=== PATIENT | female | born 1960 | race Caucasian/White ===

== ENCOUNTER 2016-11-08 16:57 | Emergency (ER) | payer OTHER ==
[~2016-11-08] VITALS: Ht 167.6 cm; Wt 88.2 kg
[~2016-11-08 16:57] MED LIST: CYCL1TAB29 PO; HYDR-3516 PO; LEVO25TA4 PO; LISI10TA3 PO; LOVA20TA PO; MOBI15TA PO
[2016-11-08 17:03] VITALS: BP 180/107; PULSE 105; RESP 16; TEMP 98.3; O2SAT 98
--- NOTE | 2016-11-08 17:27 | PD ---
HPI Chief Complaint: Hypertension Time Seen by Provider: 17:09 Travel History International Travel<30 days: No Contact w/Intl Traveler<30days: No Traveled to known affect area: No History of Present Illness HPI 56-year-old female complains of headache, chest pain, shortness of breath. Patient has history hypertension. Patient states that she started having elevated blood pressure this morning. Patient complained of facial flushing and tachycardic since this morning also. Patient states that she started having substernal chest pressure and shortness of breath since this morning. Patient denies any chest pain radiation. Patient denies any nausea or diaphoresis. Patient denies any fever chills coughing congestion. Patient was seen in urgent care center and referred to ED for evaluation. Patient states that the headache is aching headache diffuse over the head. Patient denies any visual change. Patient denies any photophobia. Patient denies any neck pain. Patient denies any abdominal pain. Patient denies any nausea vomiting. Patient denies any focal weakness or numbness of the extremity. Patient has history of hypertension. Patient denies history diabetes or dyslipidemia. Patient has history hypothyroidism. Patient is a nonsmoker. Patient denies any history of CAD. PFSH Past Medical History Cancer: No Cardiovascular Problems: Yes (htn on meds) High Cholesterol: Yes Diabetes: No Diminished Hearing: No Endocrine: Yes Genitourinary: No Hepatitis: No Hiatal Hernia: No Hypertension: Yes Immune Disorder: No Medical other: Yes Musculoskeletal: Yes (ARTHRITIS ) Neurologic: No Psychiatric: No Reproductive: No Respiratory: No Immunizations Current: Yes Thyroid Disease: Yes ?: Not Menopausal: Yes Past Surgical History AICD: No Body Medical Devices: NONE Section: Yes (x3) Gynecologic Surgery: Yes (C SECTION X3) Joint Replacement: No Pacemaker: No Other Surgery: Yes Social History Alcohol Use: Yes (beer, wine socially) Tobacco Use: No (NEVER) Substance Use: No Allergies-Medications (Allergen,Severity, Reaction): Coded Allergies: Simvastatin (Unverified Allergy, Severe, 11/08/16) Reported Meds & Prescriptions Reported Meds & Active Scripts Active Hydrocodone-Acetaminophen 5-325 mg Tab 1 Tab PO Q4H PRN Reported Lisinopril 10 Mg Tab 10 Mg PO DAILY Lovastatin 20 Mg Tab 20 Mg PO HS Review of Systems General / Constitutional: No: Fever Eyes: No: Visual changes HENT: Positive: Headaches Cardiovascular: Positive: Chest Pain or Discomfort Respiratory: Positive: Shortness of Breath Gastrointestinal: No: Abdominal Pain Genitourinary: No: Dysuria Musculoskeletal: No: Pain Skin: No Rash Neurologic: No: Weakness Psychiatric: No: Depression Endocrine: No: Polydipsia Hematologic/Lymphatic: No: Easy Bruising Physical Exam Narrative GENERAL: Well-nourished, well-developed patient. SKIN: Focused skin assessment warm/dry. HEAD: Normocephalic. EYES: No scleral icterus. No injection or drainage. Pupils 3 mm equal reactive. Fundi benign. NECK: Supple, trachea midline. No JVD or lymphadenopathy. No meningismus CARDIOVASCULAR: Mild tachycardia rate and rhythm without murmurs, gallops, or rubs. RESPIRATORY: Breath sounds equal bilaterally. No accessory muscle use. GASTROINTESTINAL: Abdomen soft, non-tender, nondistended. MUSCULOSKELETAL: No cyanosis, or edema. BACK: Nontender without obvious deformity. No CVA tenderness. Neurologic exam: Patient's awake and alert oriented 3. No obvious focal neurological deficit. Data Data Last Documented VS Vital Signs Date Time Temp Pulse Resp B/P Pulse Ox O2 Delivery O2 Flow Rate FiO2 11/08/16 18:27 93 20 152/85 98 11/08/16 17:03 98.3 Orders Electrocardiogram (11/08/16 17:18) Complete Blood Count With Diff (11/08/16 17:18) Comprehensive Metabolic Panel (11/08/16 17:18) Creatine Kinase (Cpk) (11/08/16 17:18) Troponin I (11/08/16 17:18) Prothrombin Time / Inr (Pt) (11/08/16 17:18) Act Partial Throm Time (Ptt) (11/08/16 17:18) Urinalysis - C+S If Indicated (11/08/16 17:18) D-Dimer (11/08/16 17:18) Thyroid Stimulating Hormone (11/08/16 17:18) Chest, Single Ap (11/08/16 17:18) Ct Brain W/O Iv Contrast(Rout) (11/08/16 17:18) Iv Access Insert/Monitor (11/08/16 17:18) Ecg Monitoring (11/08/16 17:18) Oximetry (11/08/16 17:18) Ct Pulmonary Angiogram (11/08/16 17:18) Labetalol Inj (Trandate Inj) (11/08/16 17:30) CKMB (11/08/16 17:25) CKMB% (11/08/16 17:25) Urine Culture (11/08/16 17:25) Iohexol 350 Inj (Omnipaque 350 Inj) (11/08/16 18:25) Labs Laboratory Tests Test 11/08/16 17:25 White Blood Count 8.5 TH/MM3 Red Blood Count 4.55 MIL/MM3 Hemoglobin 13.5 GM/DL Hematocrit 39.9 % Mean Corpuscular Volume 87.6 FL Mean Corpuscular Hemoglobin 29.6 PG Mean Corpuscular Hemoglobin 33.8 % Concent Red Cell Distribution Width 13.4 % Platelet Count 407 TH/MM3 Mean Platelet Volume 6.4 FL Neutrophils (%) (Auto) 64.7 % Lymphocytes (%) (Auto) 28.0 % Monocytes (%) (Auto) 5.1 % Eosinophils (%) (Auto) 0.9 % Basophils (%) (Auto) 1.3 % Neutrophils # (Auto) 5.5 TH/MM3 Lymphocytes # (Auto) 2.4 TH/MM3 Monocytes # (Auto) 0.4 TH/MM3 Eosinophils # (Auto) 0.1 TH/MM3 Basophils # (Auto) 0.1 TH/MM3 CBC Comment DIFF FINAL Differential Comment Prothrombin Time 10.7 SEC Prothromb Time International 1.0 RATIO Ratio Activated Partial 28.3 SEC Thromboplast Time D-Dimer Quantitative (PE/DVT) 0.43 MG/L FEU Urine Color YELLOW Urine Turbidity CLEAR Urine pH 7.0 Urine Specific [place] 1.007 Urine Protein NEG mg/dL Urine Glucose (UA) NEG mg/dL Urine Ketones NEG mg/dL Urine Occult Blood MOD Urine Nitrite NEG Urine Bilirubin NEG Urine Leukocyte Esterase MOD Urine RBC 4-9 /hpf Urine WBC 9-14 /hpf Urine WBC Clumps FEW Urine Squamous Epithelial 0-5 /hpf Cells Urine Bacteria FEW /hpf Urine Mucus FEW /lpf Microscopic Urinalysis Comment CULTURE INDICATED Sodium Level 141 MEQ/L Potassium Level 3.5 MEQ/L Chloride Level 105 MEQ/L Carbon Dioxide Level 26.3 MEQ/L Anion Gap 10 MEQ/L Blood Urea Nitrogen 13 MG/DL Creatinine 0.74 MG/DL Estimat Glomerular Filtration 81 ML/MIN Rate Random Glucose 98 MG/DL Calcium Level 8.7 MG/DL Total Bilirubin 0.3 MG/DL Aspartate Amino Transf 32 U/L (AST/SGOT) Alanine Aminotransferase 30 U/L (ALT/SGPT) Alkaline Phosphatase 98 U/L Total Creatine Kinase 427 U/L Creatine Kinase MB 5.6 NG/ML Creatine Kinase MB % 1.3 % Troponin I LESS THAN 0.02 NG/ML Total Protein 8.5 GM/DL Albumin 4.5 GM/DL Thyroid Stimulating Hormone 2.890 uIU/ML [address] [place] [address] Medical Decision Making Medical Screen Exam Complete: Yes Emergency Medical Condition: Yes Interpretation(s) 1800 p.m. Last Impressions Chest X-Ray 11/08/16 7818 Signed Impressions: Service Date/Time: October 17:31 - CONCLUSION: No acute disease. Terence Nielson MD 1801 p.m. CBC within normal limit. CMP within normal limit. Troponin normal. CK 427 with normal MB fraction. 1835 PM. D-dimer normal. UA positive with WBC and bacteria. [address] pulmonary angiogram negative for PE. Tiny right lung nodule. Follow-up with CT in [address] of the brain shows stable calcified meningioma. No acute process. Differential Diagnosis Differential diagnosis including migraine headache, tension headache, cluster headache, angina, SC, PE, pneumothorax, uncontrolled hypertension, hypertensive urgency, hypertensive crisis. Narrative Course 56-year-old female with headache, chest pressure, shortness of breath, elevated blood pressure. Labetalol 5 mg IV given. Diagnosis Primary Impression: Cephalgia Qualified Code: R51 - Acute nonintractable headache, unspecified headache type Additional Impressions: Uncontrolled hypertension Chest pain Qualified Code: R07.9 - Chest pain, unspecified type UTI (urinary tract infection) Qualified Code: N30.00 - Acute cystitis without hematuria Patient Instructions: General Instructions Additional Instructions: Fioricet for headache. Increase lisinopril to 20 mg daily. Follow-up with personal physician. Return if increasing headache, increasing chest pain or shortness of breath. Med/Other Pt SpecificInfo: Prescription(s) given Scripts Sulfamethoxazole-Trimethoprim (Bactrim DS)800-160 Mg Tab1 Tab PO BID #14 TAB Ref 0 Prov:Quoc Adames MD 11/08/16 Lisinopril 20 Mg Tab20 Mg PO DAILY #30 TAB Ref 0 Prov:Quoc Adames MD 11/08/16 Tlzpfchkfc-Yulttzyidppmm-Blqgmngo (Fioricet)50-300-40 Mg Cap1-2 Cap PO Q6H PRN ( HEADACHE) #20 CAP Ref 0 Prov:Quoc Adames MD 11/08/16 Disposition: 01 DISCHARGE HOME Condition: Stable Quoc Adames MD Nov 08, 2016 17:26
[2016-11-08] MEDS ORDERED: LABETALOL HCL 100 MG/20 ML VIAL IV PUSH ONE (17:30)
[2016-11-08 17:31] VITALS: O2SAT 96
[2016-11-08 17:34] VITALS: BP 185/84; PULSE 93; RESP 20; O2SAT 99
[2016-11-08 17:39] LABS: AUTOMATED NEUTROPHIL # 5.5 TH/MM3 (1.8-7.7); BASOPHIL # 0.1 TH/MM3 (0-0.2); BASOPHIL % 1.3 % (0.0-2.0); EOSINOPHIL # 0.1 TH/MM3 (0-0.4); EOSINOPHIL % 0.9 % (0.0-4.0); HEMATOCRIT 39.9 % (35.0-46.0); HEMO FLAGS DIFF FINAL; LYMPHOCYTE # 2.4 TH/MM3 (1.0-4.8); MEAN CELL VOLUME 87.6 FL (80.0-100.0); MEAN CORPUSCULAR HEMOGLOBIN 29.6 PG (27.0-34.0); MEAN CORPUSCULAR HGB CONC 33.8 % (32.0-36.0); MONO % 5.1 % (0.0-8.0); NEUT % 64.7 % (16.0-70.0); PLATELET COUNT 407 TH/MM3 (150-450); RED BLOOD COUNT 4.55 MIL/MM3 (4.00-5.30); RED CELL DISTRIBUTION WIDTH 13.4 % (11.6-17.2); WHITE BLOOD COUNT 8.5 TH/MM3 (4.0-11.0)
[2016-11-08 17:41] LABS: GLUCOSE,URINE NEG (NEG); KETONE, URINE NEG (NEG); NITRITE,URINE NEG (NEG)
--- NOTE | 2016-11-08 17:43 | RADHPO ---
EXAM DATE/TIME: 11/08/2016 17:31 [facility] COMPARISON: No previous studies available for comparison. INDICATIONS : Dizziness and high blood pressure today. MEDICAL HISTORY : Hypertension. Hypercholesterolemia. Arthritis. SURGICAL HISTORY : section. ENCOUNTER: Initial ACUITY: 1 day PAIN SCORE: 0/10 LOCATION: Bilateral chest FINDINGS: A single view of the chest demonstrates the lungs to be symmetrically aerated without evidence of mas s, infiltrate or effusion. The cardiomediastinal contours are unremarkable. Osseous structures are intact. CONCLUSION: No acute disease. Terence Nielson MD on November 08, 2016 at 17:40 Board Certified Radiologist. This report was verified electronically.
[2016-11-08 17:44] LABS: CHLORIDE 105 MEQ/L (98-107); POTASSIUM 3.5 MEQ/L (3.5-5.1); SODIUM (NA) 141 MEQ/L (136-145)
[2016-11-08 17:48] LABS: ANION GAP 10 MEQ/L (5-15); BICARBONATE 26.3 MEQ/L (21.0-32.0)
[2016-11-08 17:49] LABS: BLOOD UREA NITROGEN 13 MG/DL (7-18)
[2016-11-08 17:51] LABS: ALT (GPT) 30 U/L (10-53)
[2016-11-08 17:52] LABS: AST (GOT) 32 U/L (15-37); GLOMERULAR FILTRATION RATE 81 ML/MIN (>89)
[2016-11-08 17:53] LABS: TOTAL BILIRUBIN ADULT 0.3 MG/DL (0.2-1.0)
[2016-11-08 17:54] LABS: ALKALINE PHOSPHATASE 98 U/L (45-117); APTT (PATIENT) 28.3 SEC (24.3-30.1); CREATINE KINASE 427 U/L (26-192); PROTHROMBIN TIME - PATIENT 10.7 SEC (9.8-11.6)
[2016-11-08 18:06] LABS: BLOOD, URINE MOD (NEG); URINE COLOR YELLOW (YELLW/STRAW)
[2016-11-08 18:07] LABS: BACTERIA, URINE FEW /hpf; CKMB 5.6 NG/ML (0.5-3.6); COMMENT (UR) CULTURE INDICATED; CULTURE IF INDICATED CULTURE INDICATED; MUCUS URINE FEW /lpf (OCC); SQUAMOUS EPITHELIAL CELL URINE 0-5 /hpf (0-5)
[2016-11-08] MEDS ORDERED: IOHEXOL 350 MG/ML 10 ML VIAL (for RAD DIAG) IV ONE (18:25)
[2016-11-08 18:27] VITALS: BP 152/85; PULSE 93; RESP 20; O2SAT 98
--- NOTE | 2016-11-08 18:37 | RADHPO ---
EXAM DATE/TIME: 11/08/2016 18:02 [facility] COMPARISON: CT BRAIN W/O CONTRAST, May 26, 2016, 9:29. INDICATIONS : Cephalgia. RADIATION DOSE: 67.15 CTDIvol (mGy) MEDICAL HISTORY : Hypertension. SURGICAL HISTORY : section. ENCOUNTER: Initial ACUITY: 1 day PAIN SCALE: 2/10 LOCATION: cranial TECHNIQUE: Multiple contiguous axial images were obtained of the head. Using automated exposure control and adj ustment of the mA and/or kV according to patient size, radiation dose was kept as low as reasonably a chievable to obtain optimal diagnostic quality images. FINDINGS: Approximate 8 mm area of calcification is again seen in the right frontal region appears to be in the dura may be a small calcified meningioma and not changed. There is no evidence for intracranial hemo rrhage, mass effect, edema, or extra-axial fluid collections. The visualized bony structures appear intact. The ventricles are normal size for the patient's age. There are no signs of acute infarctio n for technique. CONCLUSION: Stable calcified meningioma and no acute process. Corie Ayers MD on November 08, 2016 at 18:33 Board Certified Radiologist. This report was verified electronically.
--- NOTE | 2016-11-08 18:42 | RADHPO ---
EXAM DATE/TIME: 11/08/2016 18:08 [facility] COMPARISON: No previous studies available for comparison. INDICATIONS : Chest pain. Short of breath. IV CONTRAST: 75 cc Omnipaque 350 (iohexol) IV RADIATION DOSE: 15.85 CTDIvol (mGy) MEDICAL HISTORY : Hypertension. SURGICAL HISTORY : section. ENCOUNTER: Initial ACUITY: 1 day PAIN SCALE: 2/10 LOCATION: chest TECHNIQUE: Volumetric scanning of the chest was performed using a pulmonary embolism protocol MIP images were re constructed. Using automated exposure control and adjustment of the mA and/or kV according to patien t size, radiation dose was kept as low as reasonably achievable to obtain optimal diagnostic quality images. FINDINGS: There is no evidence for PE for technique. There is a tiny approximately 5-6 mm groundglass nodule in the right upper lobe laterally. There is no pleural effusion. No appreciable pathological adenopat hy is seen within the mediastinum. CONCLUSION: There is no evidence for PE for technique. Tiny right lung nodule most likely benign, repeat noncontrast chest CT is suggested in 6 months as a conservative follow up. Corie Ayers MD on November 08, 2016 at 18:37 Board Certified Radiologist. This report was verified electronically.
[2016-11-08] MEDS ORDERED: LISI-515 PO (19:16)
[2016-11-08] MEDS ORDERED: BUTA1CAP PO (19:16)
[2016-11-08] MEDS ORDERED: BACT800T5 PO (19:16)
[2016-11-08 19:19] VITALS: BP 141/64; PULSE 97; RESP 18; O2SAT 97
--- NOTE | 2016-11-09 06:05 | EKG ---
Date Performed: 11/08/2016 Time Performed: 17:24:16 PTAGE: 56 years EKG: Sinus rhythm Inferior ST-T changes are nonspecific Borderline ECG NO SIGNIFICANT CHANGE FROM PRIOR ELECTROCARDIOG LATANYA. PREVIOUS TRACING : 06/19/2016 07.02 DOCTOR: Shahab Girard Interpretating Date/Time 11/09/2016 06:04:13
== END 2016-11-08 19:32 | disposition home or self-care (01) ==
LOC: PHED 16:57
DX: R51 Headache (principal); I10 Essential (primary) hypertension; R07.9 Chest pain, unspecified; N39.0 Urinary tract infection, site not specified; R06.02 Shortness of breath; R94.31 Abnormal electrocardiogram [ECG] [EKG]
CPT/HCPCS: 70450; 71010; 71275; 80053; 81001; 82550; 82552; 84443; 84484; 85025; 85379; 85610; 85730; 87086; 93005; 96374; 99284; Q9967